=== PATIENT | female | born 1980 | race Two or more races ===

== ENCOUNTER 2019-11-01 16:40 | Emergency (ER) | payer MEDICAID ==
[~2019-11-01] VITALS: Ht 160 cm; Wt 95.9 kg
[2019-11-01 16:49] VITALS: Ht 160 cm; Wt 95.9 kg
[2019-11-01] MEDS ORDERED: ANEFRIN15 ML NS (18:11)
[2019-11-01 18:17] VITALS: BP 148/80
== END 2019-11-01 18:19 | disposition home or self-care (01) ==
LOC: D.ER 16:40
DX: J98.8 Other specified respiratory disorders (principal); J02.9 Acute pharyngitis, unspecified; I10 Essential (primary) hypertension; Z72.0 Tobacco use